=== PATIENT | female | born 1975 | race Caucasian/White ===

== ENCOUNTER 2019-09-04 17:25 | Emergency (ER) | payer BC ==
[~2019-09-04] VITALS: Ht 165.1 cm; Wt 98.9 kg
[~2019-09-04 17:25] MED LIST: LISINOPRIL10 MG PO; METFORMIN HCL500 MG PO; ONDANSETRON ODT8 MG PO; SIMVASTATIN20 MG PO
== END 2019-09-04 18:35 | disposition home or self-care (01) ==
LOC: ED 17:25
DX: R10.30 Lower abdominal pain, unspecified (principal); E11.9 Type 2 diabetes mellitus without complications; F17.200 Nicotine dependence, unspecified, uncomplicated; Z91.040 Latex allergy status; Z79.899 Other long term (current) drug therapy
CPT/HCPCS: 81001; 84703; 99284